=== PATIENT | male | born 1990 | race Caucasian/White ===

== ENCOUNTER 2025-01-01 21:38 | Emergency (ER) | payer OTHER, SELFPAY ==
[2025-01-01 21:45] VITALS: BP 163/90; PULSE 89; RESP 20; TEMP 36.7; O2SAT 98; BMI 38.3
--- NOTE | 2025-01-01 21:55 | ED_ITS ---
HPI - Skin/Abscess/Foreign Bdy General Time Seen by Provider: 21:55 Date Seen: 01/01/25 Chief complaint: Skin/Abscess/Foreign Body Stated complaint: scratched finger in [place] wants it checked out Time Seen by Provider: 01/01/25 21:44 Source: patient and RN notes reviewed Mode of arrival: ambulatory Limitations: no limitations History of Present Illness HPI narrative: Patient is coming into the ED with concern of superficial scratches on his index finger that happened in [place]. He was in [place] when he was out at dinner, went to the bathroom and on way back from bathroom, noticed bloody scratches on his finger. He states that there was a small puncture wound too by the knuckle. He is having no pain, no redness, no swelling, no fevers. Unsure of tetanus status. He was at no time petting any animals, was awake when this happened but has absolutely no idea what he cut his finger on. He was reading about rabies and became concerned; again, no known contact with any animals. This happened 6 days ago. Related Data Allergies Allergy/AdvReac Type Severity Reaction Status Date / Time No Known Drug Allergies Allergy Verified 01/01/25 21:47 Review of Systems Narrative: As per HPI. [facility] Medical History High cholesterol ?E78.00 - Pure hypercholesterolemia, unspecified (ICD-10) Hypertension ?I10 - Essential (primary) hypertension (ICD-10) Surgical History No significant past surgical history Social History Smoking Status: Never smoker Second hand tobacco smoke exposure: No How often do you have a drink containing alcohol: never AUDIT-C Alcohol total score: 0 Non-prescribed substance use: denies use Exam Const: Vital Signs, click to edit/add: Vital Signs - 24 hr 01/01/25 21:45 01/01/25 22:17 01/01/25 22:19 Temperature 98.0 F 98.0 F 98.0 F Pulse Rate [Right Pulse Oximeter] 89 85 85 Respiratory Rate 20 20 20 Blood Pressure [Le ft Upper Arm] 163/90 H 155/85 H 155/85 H Pulse Oximetry 98 98 Oxygen Delivery Me thod Room Air Room Air 34yo male is alert, interactive, no appa rent distress. Ambulatory into the ED without problems. The finger has very faint almost healed superficial scratches, one about 0.5cm and the other about 0.3cm along the dorsal lateral aspect of the middle phalanx of his right 2nd finger. I note no puncture wound. The scab is super faint, superficial an almost not perceptible on the smaller 1. He has full range of motion of this finger, absolutely no erythema, no swelling, no fluctuance, no tenderness. Documenting provider has reviewed patient's vital signs: yes Course Course ED Course: We will make sure his tetanus is up-to-date, have reviewed with patient that he notice the injury while awake, he most certainly should have been aware if he came in contact with an animal. He does note that he was drinking but was not intoxicated to the point of any blackouts or any loss of time. He was still aware. I do not think going down rabies immune globulin and prophylaxis would be indicated. He certainly could do testing for hepatitis and HIV through clinic and do follow-up at appropriate time line for retesting. This just seems so superficial and if he would have cut himself on something like a needle or been bit by an animal or scratched by an animal I think he certainly would have been aware as he was awake. I am a bit confounded actually as to what to tell him as he really has no idea how this happened but was awake. Would certainly seem if there significant mechanism that he should have felt some awareness when it was happening. Would favor just observation at this point and watch for secondary infection. Vital Signs Vital signs: Initial Vital Signs Temperature 98.0 F 01/01/25 21:45 Temperature Source Temporal Artery Scan 01/01/25 21:45 Pulse Rate 89 01/01/25 21:45 Respiratory Rate 20 01/01/25 21:45 Blood Pressure 163/90 H 01/01/25 21:45 Blood Pressure Mean 114 H 01/01/25 21:45 Blood Pressure Position Sitting 01/01/25 21:45 Pulse Oximetry 98 01/01/25 21:45 Oxygen Delivery Method Room Air 01/01/25 21:45 Vital Signs Temperature 98.0 F 01/01/25 21:45 Pulse Rate 89 01/01/25 21:45 Respiratory Rate 20 01/01/25 21:45 Blood Pressure 163/90 H 01/01/25 21:45 Pulse Oximetry 98 01/01/25 21:45 Oxygen Delivery Method Room Air 01/01/25 21:45 Temperature 98.0 F 01/01/25 22:19 Pulse Rate 85 01/01/25 22:19 Respiratory Rate 20 01/01/25 22:19 Blood Pressure 155/85 H 01/01/25 22:19 Pulse Oximetry 98 01/01/25 22:17 Oxygen Delivery Method Room Air 01/01/25 22:17 Discharge Plan Discharge Clinical Impression: Superficial injury of skin Patient Disposition: Home, Self-Care Condition: Stable Instructions: Cellulitis (ED) Additional Instructions: Handout provided on cellulitis which reviews skin infections. If your noting symptoms of this, please seek re-evaluation. There is no evidence of any infection at this time. Tetanus is up-to-date, was in 2020. Stand Alone Forms: [employer] Info Instructions
[2025-01-01 22:17] VITALS: BP 155/85; PULSE 85; RESP 20; TEMP 36.7; O2SAT 98
--- OUTSIDE RECORDS SUMMARY | 2025-01-01 22:18 | XMS_ITS | Clinical Summary ---
Author Organization [facility] Address [place], [place] [address] Care Team Providers Care Allocation Analyst Name Role Phone Chai Baig MD Primary Care Provider [phone] Allergies No known active allergies Medications MULTIVITAMIN TAB take 1 tablet by oral route once daily with food 0 05/22/2009 Active lisinopriL (PRINIVIL; ZESTRIL) 10 mg tabletIndications :Primary hypertension Take 1 Tablet (10 mg) by mouth once daily. 90 Tablet 4 09/01/2024 Active atorvastatin (LIPITOR) 20 mg tabletIndications :Hyperlipidemia LDL goal <130 Take 1 Tablet (20 mg) by mouth at bedtime. 90 Tablet 4 09/01/2024 Active Active Problems Problem Noted Date Diagnosed Date Morbid obesity with BMI of 40.0-44.9, adult 02/2024 Primary hypertension 09/01/2024 Hyperlipidemia LDL goal <130 09/01/2024 Panic attacks 06/06/2019 Snoring 12/05/2015 Overview (12/05/2015): POLYSOMNOGRAM PSG type: full night baseline Date of study:11/20/2015; weight @ time of study: 240# Facility: [facility] Total Sleep Time: 316.5 Sleep Efficiency: 76.4% AHI: 1.9 RDI: 2.1 Ezequiel O2%: 91 MD interp: no evidence of sleep disordered breathing... Resolved Problems Problem Noted Date Diagnosed Date Resolved Date Pure hypercholesterolemia 06/06/2019 Unspecified essential hypertension 06/26/2008 09/01/2024 Morbid obesity 05/07/2007 07/25/2015 Encounters Date Type Department Care Team Description 10/02/2024 4:00 PM SALES SUPPORT REPRESENTATIVE Nurse/Clinic Staff [place] [facility] [place] [address] [facility] [place], [place] [phone] Nurse/Clinic Staff Only (Bp check) 10/02/2024 Telephone [facility] [place] [address] [place], [place] [id number] Chai Baig MD Blood Pressure 10/02/2024 Travel from Last 3 Months Immunizations Name Administration Dates Next Due AMB Influenza, IIV3 (Age >=3 years)(Flu Clinic Only) 09/13/2013 COVID-19 VACCINE SPIKEVAX (M ODERNA 50MCG/0.5ML) 12YO+ PFS 08/27/2023 COVID-19 vaccine (Moderna 100mcg/0.5mL) PF, MDV 04/18/2021,03/21/2021 COVID-19 vaccine (Moderna Carlos cinthya 50mcg/0.25mL) PF, MDV 10/21/2021 DTaP 03/24/1996, 2,1991,06/09,1991 HIB PRP-T (ActHIB,Hiberix) 05/22/1992,,1991,04/18 HPV 9 (Gardasil 9) 2017 Hepatitis A (Peds) 12/26/2007,05/06/2007 Hepatitis B (Peds) 09/01/2000,04/12/2000, 000 Human Papilloma Virus Vaccine 06/25/2014, 013 Inactivated Polio Vaccine 03/24/1996,,1991,04/18 Influenza, CCIIV3 (Age >=6 M O) (Egg Free) 08/25/2024 Influenza, IIV3 (Age >=3 years) 08/22/2012,08/24 Influenza, IIV4 09/05/2021,12/04/2019,09/15/2018 Influenza,CCIIV4 PRESERV FREE 08/27/2023, 022,09/20/2017 MMR 02/27/2000,05/22/1992 Meningococcal Vaccine 05/28/2005 Meningococcal Vaccine (Menactra) 05/28/2005 Meningococcal Vaccine (Menomune) 05/28/2005 Td (Age >=7 Years) 05/08/2003 Tdap 05/06/2021,05/19/2011 Family History Medical History Relation Name Comments Hypertension Maternal Grandfather Hypertension Maternal Grandmother Other Maternal Uncle cardiovascula r disease Aneurysm Paternal Grandfather abdomin al aortic Hypertension Paternal Grandfather Relation Name Status Comments Maternal Grandfather Maternal Grandmother Maternal Uncle Other Other Paternal Grandfather Social History Tobacco Use Types Packs/Day Years Used Date Smoking Tobacco: Never Passive Smoke Exposure: Never Smokeless Tobacco: Never Tobacco Cessation:Counseling Given: Not Answered Alcohol Use Standard Drinks/Week Comments Yes 0 (1 standard drink = 0.6 oz pur e alcohol) occasional PHQ-2 Answer Date Recorded PHQ-2 TOTAL SCORE 0 05/24/2023 Social Connections Answer Date Recorded Do you often feel lonely or isolated from those around you? 0 09/01/2024 Financial Resource Strain Answer Date R ecorded Difficulty of Paying Living Expenses 3 09/01/2024 Difficulty of Paying Living Expenses Not on file 09/01/2024 Food Insecurity Answer Date Recorded Do you worry your food will run out before you are able to buy more? 1 09/01/2024 Transportation Needs Answer Date Record ed Does lack of transportation keep you from medica l appointments? 1 09/01/2024 Does lack of transportation keep you from work, meetings or getting things that you need? 1 09/01/2024 Housing Stability Answer Date Recorded What is your housing situation today? 1 09/01/2024 Utilities Answer Date Recorded Do you have trouble paying f or utilities (for example, heat, electricity, water, phone)? 1 09/01/2024 Sex and Gender Information Value Date Recorded Sex Assigned at Male 08/29/2024 10:22 PM CDT Legal Sex Male 5:46 AM SALES SUPPORT REPRESENTATIVE Gender Identity Male 08/29/2024 10:22 PM CDT Sexual Orientation Straight 08/29/2024 10 :22 PM CDT Obstetrics History Last Filed Vital Signs Vital Sign Reading Time Taken Comments Blood Pressure 122/80 10/02/2024 4:10 PM SALES SUPPORT REPRESENTATIVE Pulse 76 10/02/2024 4:10 PM SALES SUPPORT REPRESENTATIVE Temperature 37.7 C (99.8 F) 06/06/2019 7:58 AM CDT Respiratory Rate 16 05/24/2023 2:15 PM CDT Oxygen Saturation 98% 12/09/2015 7:50 AM SALES SUPPORT REPRESENTATIVE Inhaled Oxygen Concentration - - Weight 133.8 kg (295 lb) 09/01/2024 3:31 PM CDT Height 182.9 cm (6') 09/01/2024 3:31 PM CDT Body Mass Index 40.01 09/01/2024 3:31 PM CDT Plan of Treatment Upcoming Encounters Date Type Department Care Team (Late st Contact Info) Description 01/04/2025 2:00 PM SALES SUPPORT REPRESENTATIVE [place] [facility] [place] [address] [place], [place] [phone] [place] [address] [place] [address] Health Maintenance Due Date Last Done Comments Depression screening for age 12+ 05/24/2024 05/24/2023, 05/14/2022, 05/06/2021, Additional history exists BMI (ht and wt on same day) for age 18+ 09/01/2025 09/01/2024, 05/24/2023, 05/14/2022, Additional history exists Tetanus booster 05/06/2031 05/06/2021, 04/30, 05/08/2003 Tdap Completed 05/06/2021, 05/19/2011 Hepatitis C screening for age 18-79 Completed 05/14/2022 HIV for age 15-65 Completed 05/24/2023 COVID-19 vaccine series Completed 08/25/20 24, 08/27/2023, 08/05/2022, Additional history exists Influenza for age 9-49 Completed 4, 08/27/2023, 08/05/2022, Additional history exists Pneumococcal series for age 6-49 Aged Out No longer eligible based on patient's age to complete this topic Procedures Procedure Name Priority Date/Time Associated Diagnosis Comments LC HIV-1/O/2, 4TH GENERATION Routine 05/24/2023 3:15 PM CDT Screening for HIV (human immunodeficiency virus) ANTI HCV Routine 05/14/2022 3:34 PM CDT Need for hepatitis C screening test from Last 3 Months or Most Recently Relevant to Health Maintenance Results * LC HIV-1/O/2, 4TH GENERATION (05/24/2023 3:15 PM CDT) Pathologist [facility] HIV Scr 4th Gen Non Reactive Non Reactive 05/26/2023 10:[address] [facility]) Comment: HIV Negative HIV-1/HIV-2 antibodies and HIV-1 p24 antigen were NOT detected. There is no laboratory evidence of HIV infection. Blood BLOOD SPECIMEN / Unknown Venipuncture / Unknown 05/24/2023 3:15 PM CDT 05/24/2023 3:31 PM CDT Narrative [facility] ([facility]) - 05/26/2023 10:07 PM CDT Performed at: [address] [place] [id number] Collection Systems Administrator: Maycol Liao MD, Phone: [phone] us Kurt Kidd MD LABORATORY Final Res ult [facility] ([facility]) [address] [place] [address], * ANTI HCV (05/14/2022 3:34 PM CDT) Pathologist [facility] HEPATITIS C ANTIBODY Non-React sebas Non-React sebas 05/15/2022 4:36 AM CDT [facility] Comment:Antibodies to HCV no t detected; does not exclude the possibility of exposure to HCV. Blood BLOOD SPECIMEN / Unknown Venipuncture / Unknown 05/14/2022 3:34 PM CDT 05/14/2022 3:36 PM CDT us Kurt Kidd MD SEND OUTS Final Res ult [facility] [address] [place] [address], [place] from Last 3 Months or Most Recently Relevant to Health Maintenance Insurance [facility] Care Teams Allocation Analyst Relationship Specialty [place] [id number] [place] [address] PCP - General Family Practice 10/02/24
[2025-01-01 22:19] VITALS: BP 155/85; PULSE 85; RESP 20; TEMP 36.7
== END 2025-01-01 22:19 | disposition home or self-care (01) ==
LOC: ED 22:17
PROVIDERS: Emergency Provider Family Medicine; PCP Family Medicine
DX: S60.410A Abrasion of right index finger, initial encounter (principal)
CPT/HCPCS: 99282